=== PATIENT | male | born 1940 | race Caucasian/White ===

== ENCOUNTER 2022-01-27 21:06 | Inpatient (IN) | payer OTHER, MEDICAID ==
[~2022-01-27] VITALS: Ht 167.6 cm; Wt 60.4 kg
[2022-01-27] MEDS ORDERED: CEFTRIAXONE 1 G PREMIX 50 ML IV ONE (22:30)
[2022-01-27] MEDS ORDERED: AZITHROMYCIN 500MG/250ML 250 ML IV ONE (22:30)
[2022-01-27 23:16] LABS: HEMATOCRIT. 36.8 % (42.0-52.0); HEMOGLOBIN. 12.1 g/dL (14.0-18.0); MEAN CORPUSCULAR HEMOGLOBIN 31.4 pg (28.0-32.0); MEAN CORPUSCULAR VOLUME 95.6 fL (80.0-94.0); MEAN PLATELET VOLUME 7.6 fl (7.4-10.4); PLATELET 350 x1000/uL (130-400); RED BLOOD CELL COUNT 3.85 mill/uL (4.7-6.1); RED CELL DISTRIBUTION WIDTH 15.9 % (11.6-14.6)
[2022-01-27 23:22] LABS: CHLORIDE 102 mEq/L (98-107)
[2022-01-28] MEDS ORDERED: ASPIRIN 325MG TABLET PO ONE (00:15)
[2022-01-28] MEDS ORDERED: SODIUM CHLORIDE 0.9% 1000ML BAG (SEPSIS BOLUS) IV ONE (00:15)
[2022-01-28 07:11] LABS: ATYPICAL LYMPHOCYTES 1; PLATELET ESTIMATE NORMAL
[2022-01-28] MEDS: ASPIRIN 325MG TABLET PO NR ×2 (08:23→08:30)
[2022-01-28] MEDS ORDERED: DEXTROSE 50% WATER 50ML SYRINGE IV PRN (10:15)
[2022-01-28] MEDS ORDERED: ONDANSETRON HCL 4MG/2ML INJ IV PRN (10:15)
[2022-01-28] MEDS ORDERED: ACETAMINOPHEN 325MG TABLET PO PRN (10:15)
[2022-01-28] MEDS: SODIUM CHLORIDE 0.45% 1,000 ML IV SCH ×2 (10:50→21:53)
[2022-01-28 11:06] LABS: BG BASE EXCESS 0.1 mmol/L (-2.0-2.0); BG CARBOXYHEMOGLOBIN 0.7 % (0.5-1.5); BG DEOXYHEMOGLOBIN 3.9 % (0.0-5.0); BG FRACTION INSPIRED OXYGEN 21; BG HCO3 ACT 24.4 mmol/L (22.0-26.0); BG METHEMOGLOBIN 0.1 % (0.0-1.5); BG OXYGEN SATURATION 96.1 % (92.0-98.5); BG OXYHEMOGLOBIN 95.3 % (94.0-97.0); BG PCO2 38.2 mmHg (35.0-45.0); BG PH 7.423 (7.350-7.450); BG PO2 78.7 mmHg (75.0-100.0); BG SAMPLE SITE RIGHT RADIAL; BG TOTAL HEMOGLOBIN 12.5 g/dL (12.0-18.0); BG VENT MODE ROOM AIR
[2022-01-28] MEDS: BLOOD SUGAR DIAGNOSTIC STRIP TEST SCH ×3 (13:14→21:55)
[2022-01-28] MEDS: INSULIN LISPRO 100 UNITS/ML SUBCUT SCH ×3 (13:40→21:00)
[2022-01-28 14:10] VITALS: BP 107/70
[2022-01-28 16:00] VITALS: BP 89/60
[2022-01-28] MEDS ORDERED: ATOR10TA69 PO (18:41)
[2022-01-28] MEDS ORDERED: ASPI-1497 PO (18:41)
[2022-01-28] MEDS ORDERED: METF-874 MT (18:41)
[2022-01-28 20:00] VITALS: BP 121/69
[2022-01-28] MEDS ORDERED: CEFTRIAXONE 1 G PREMIX 50 ML IV SCH (21:00)
[2022-01-28] MEDS: CEFTRIAXONE 1,000 MG in DEXTROSE 5% WATER 50 ML IV SCH (21:53)
[2022-01-28] MEDS ORDERED: AZITHROMYCIN 500 MG in DEXT 5% WATER 250 ML IV SCH (23:00)
[2022-01-29] VITALS: BP 101/68
[2022-01-29 04:00] VITALS: BP 100/70
[2022-01-29 07:10] LABS: HEMATOCRIT. 36.4 % (42.0-52.0); HEMOGLOBIN. 11.9 g/dL (14.0-18.0); MEAN CORPUSCULAR HEMOGLOBIN 31.8 pg (28.0-32.0); MEAN CORPUSCULAR VOLUME 97.4 fL (80.0-94.0); MEAN PLATELET VOLUME 8.1 fl (7.4-10.4); PLATELET 293 x1000/uL (130-400); RED BLOOD CELL COUNT 3.74 mill/uL (4.7-6.1); RED CELL DISTRIBUTION WIDTH 15.6 % (11.6-14.6)
[2022-01-29 07:33] LABS: CHLORIDE 106 mEq/L (98-107)
[2022-01-29] MEDS: BLOOD SUGAR DIAGNOSTIC STRIP TEST SCH ×4 (07:59→21:45)
[2022-01-29 08:00] VITALS: BP 111/67
[2022-01-29] MEDS: INSULIN LISPRO 100 UNITS/ML SUBCUT SCH ×4 (08:45→21:39)
[2022-01-29] MEDS: ENOXAPARIN 40MG/0.4ML SYR SUBCUT SCH (10:24)
[2022-01-29 12:00] VITALS: BP 98/65
[2022-01-29] MEDS: SODIUM CHLORIDE 0.45% 1,000 ML IV SCH (13:26)
[2022-01-29 14:03] LABS: PLATELET ESTIMATE NORMAL
[2022-01-29 16:00] VITALS: BP 98/64
[2022-01-29] MEDS: AZITHROMYCIN 500 MG in DEXT 5% WATER 250 ML IV SCH (18:37)
[2022-01-29] MEDS: CEFTRIAXONE 1,000 MG in DEXTROSE 5% WATER 50 ML IV SCH (20:05)
[2022-01-30] VITALS (7 sets, daily range): BP systolic 95–120; BP diastolic 53–80
[2022-01-30] MEDS: SODIUM CHLORIDE 0.45% 1,000 ML IV SCH ×2 (02:30→22:41)
[2022-01-30] MEDS: BLOOD SUGAR DIAGNOSTIC STRIP TEST SCH ×4 (07:58→21:00)
[2022-01-30] MEDS: INSULIN LISPRO 100 UNITS/ML SUBCUT SCH ×4 (07:58→21:00)
[2022-01-30] MEDS: ENOXAPARIN 40MG/0.4ML SYR SUBCUT SCH (09:20)
[2022-01-30] MEDS: CEFTRIAXONE 1,000 MG in DEXTROSE 5% WATER 50 ML IV SCH (22:45)
[2022-01-30] MEDS: AZITHROMYCIN 500 MG in DEXT 5% WATER 250 ML IV SCH (22:45)
[2022-01-31] VITALS: BP 113/79
[2022-01-31 04:00] VITALS: BP 111/78
[2022-01-31] MEDS: SODIUM CHLORIDE 0.45% 1,000 ML IV SCH ×2 (04:56→12:20)
[2022-01-31 06:43] LABS: BASOPHILS % 0.2 % (0.0-2.0); EOSINOPHILS % 1.3 % (0.0-5.0); HEMATOCRIT. 34.7 % (42.0-52.0); HEMOGLOBIN. 11.8 g/dL (14.0-18.0); LYMPHOCYTES % 8.9 % (20.0-50.0); MEAN CORPUSCULAR HEMOGLOBIN 31.9 pg (28.0-32.0); MEAN CORPUSCULAR VOLUME 93.4 fL (80.0-94.0); MEAN PLATELET VOLUME 8.4 fl (7.4-10.4); NEUTROPHILS % 86.6 % (40.0-76.0); PLATELET 324 x1000/uL (130-400); RED BLOOD CELL COUNT 3.71 mill/uL (4.7-6.1); RED CELL DISTRIBUTION WIDTH 15.4 % (11.6-14.6)
[2022-01-31] MEDS: BLOOD SUGAR DIAGNOSTIC STRIP TEST SCH ×4 (07:37→21:51)
[2022-01-31 08:00] VITALS: BP 118/75
[2022-01-31] MEDS: INSULIN LISPRO 100 UNITS/ML SUBCUT SCH ×4 (08:11→21:50)
[2022-01-31] MEDS: ENOXAPARIN 40MG/0.4ML SYR SUBCUT SCH (08:12)
[2022-01-31 12:00] VITALS: BP 126/82
[2022-01-31 16:00] VITALS: BP 120/76
[2022-01-31] MEDS: FAMOTIDINE 20MG/2ML VIAL IV SCH (16:30)
[2022-01-31] MEDS: AZITHROMYCIN 500 MG in DEXT 5% WATER 250 ML IV SCH (17:36)
[2022-01-31 20:00] VITALS: BP 114/80
[2022-01-31] MEDS: CEFTRIAXONE 1,000 MG in DEXTROSE 5% WATER 50 ML IV SCH (21:59)
[2022-01-31 22:56] LABS: CHLORIDE 103 mEq/L (98-107)
[2022-02-01 00:43] VITALS: BP 102/68
[2022-02-01] MEDS: FAMOTIDINE 20MG/2ML VIAL IV SCH ×2 (03:22→16:22)
[2022-02-01 04:00] VITALS: BP 114/77
[2022-02-01] MEDS: BLOOD SUGAR DIAGNOSTIC STRIP TEST SCH ×4 (07:30→20:07)
[2022-02-01] MEDS: INSULIN LISPRO 100 UNITS/ML SUBCUT SCH ×4 (07:30→20:07)
[2022-02-01 07:32] LABS: BASOPHILS % 0.1 % (0.0-2.0); EOSINOPHILS % 1.1 % (0.0-5.0); HEMATOCRIT. 33.4 % (42.0-52.0); HEMOGLOBIN. 11.6 g/dL (14.0-18.0); LYMPHOCYTES % 7.7 % (20.0-50.0); MEAN CORPUSCULAR VOLUME 92.5 fL (80.0-94.0); MEAN PLATELET VOLUME 8.6 fl (7.4-10.4); MONOCYTES % 3.4 % (2.0-8.0); NEUTROPHILS % 87.7 % (40.0-76.0); PLATELET 319 x1000/uL (130-400); RED BLOOD CELL COUNT 3.61 mill/uL (4.7-6.1); RED CELL DISTRIBUTION WIDTH 15.3 % (11.6-14.6)
[2022-02-01 08:00] VITALS: BP 125/77
[2022-02-01] MEDS: ENOXAPARIN 40MG/0.4ML SYR SUBCUT SCH (08:55)
[2022-02-01 10:43] LABS: CHLORIDE 102 mEq/L (98-107)
[2022-02-01 12:00] VITALS: BP 103/69
[2022-02-01 16:00] VITALS: BP 106/73
[2022-02-01 20:00] VITALS: BP 122/83
[2022-02-01] MEDS: CEFTRIAXONE 1,000 MG in DEXTROSE 5% WATER 50 ML IV SCH (20:38)
[2022-02-02 00:15] VITALS: BP 128/77
[2022-02-02 04:10] VITALS: BP_SYST 122; BP_DIAS 80; BP_DIAS 83
[2022-02-02] MEDS: FAMOTIDINE 20MG/2ML VIAL IV SCH ×2 (04:48→17:45)
[2022-02-02] MEDS: BLOOD SUGAR DIAGNOSTIC STRIP TEST SCH ×4 (06:53→20:56)
[2022-02-02 08:00] VITALS: BP 137/89
[2022-02-02] MEDS: INSULIN LISPRO 100 UNITS/ML SUBCUT SCH ×4 (08:10→20:56)
[2022-02-02] MEDS: ENOXAPARIN 40MG/0.4ML SYR SUBCUT SCH (08:58)
[2022-02-02 12:00] VITALS: BP 127/79
[2022-02-02 16:00] VITALS: BP 121/69
[2022-02-02 19:51] VITALS: BP 120/84
[2022-02-02] MEDS: CEFTRIAXONE 1,000 MG in DEXTROSE 5% WATER 50 ML IV SCH (20:51)
[2022-02-03] VITALS: BP 111/64
[2022-02-03] MEDS: FAMOTIDINE 20MG/2ML VIAL IV SCH ×2 (03:53→17:28)
[2022-02-03 03:59] VITALS: BP 121/79
[2022-02-03] MEDS: BLOOD SUGAR DIAGNOSTIC STRIP TEST SCH ×4 (06:44→20:51)
[2022-02-03 08:00] VITALS: BP 127/83
[2022-02-03] MEDS: INSULIN LISPRO 100 UNITS/ML SUBCUT SCH ×4 (08:10→21:01)
[2022-02-03] MEDS: ENOXAPARIN 40MG/0.4ML SYR SUBCUT SCH (09:25)
[2022-02-03 12:00] VITALS: BP 97/52
[2022-02-03 16:00] VITALS: BP 94/47
[2022-02-03 20:00] VITALS: BP 101/59
[2022-02-04] VITALS: BP 91/58
[2022-02-04 04:00] VITALS: BP 98/51
[2022-02-04] MEDS: FAMOTIDINE 20MG/2ML VIAL IV SCH ×2 (04:58→17:35)
[2022-02-04] MEDS: INSULIN LISPRO 100 UNITS/ML SUBCUT SCH ×4 (06:10→20:26)
[2022-02-04] MEDS: BLOOD SUGAR DIAGNOSTIC STRIP TEST SCH ×4 (06:11→20:25)
[2022-02-04 08:00] VITALS: BP 121/69
[2022-02-04] MEDS: ENOXAPARIN 40MG/0.4ML SYR SUBCUT SCH (09:15)
[2022-02-04 12:00] VITALS: BP 118/76
[2022-02-04 16:00] VITALS: BP 118/70
[2022-02-04 20:00] VITALS: BP 110/69
[2022-02-05] VITALS (7 sets, daily range): BP systolic 94–156; BP diastolic 40–98
[2022-02-05] MEDS: FAMOTIDINE 20MG/2ML VIAL IV SCH ×2 (03:48→18:49)
[2022-02-05] MEDS: BLOOD SUGAR DIAGNOSTIC STRIP TEST SCH ×4 (06:49→21:00)
[2022-02-05] MEDS: INSULIN LISPRO 100 UNITS/ML SUBCUT SCH ×4 (08:09→21:00)
[2022-02-05] MEDS: ENOXAPARIN 40MG/0.4ML SYR SUBCUT SCH (10:25)
== END 2022-02-05 20:50 | DRG 871 ==
LOC: ER 21:06 → 5EST 01-28 02:12 → ENRESERV 01-28 11:30 → CANRESERV 01-28 11:30 → ENRESERV 01-28 11:43 → 7WST 01-30 14:10
PROVIDERS: ADMIT Internal Medicine; ATTEND Internal Medicine
DX: A41.9 Sepsis, unspecified organism (principal); E43 Unspecified severe protein-calorie malnutrition; J18.9 Pneumonia, unspecified organism; G92.8 Other toxic encephalopathy; J96.00 Acute respiratory failure, unspecified whether with hypoxia or hypercapnia; E87.20 Acidosis, unspecified; Z20.822 Contact with and (suspected) exposure to COVID-19; E11.65 Type 2 diabetes mellitus with hyperglycemia; I10 Essential (primary) hypertension; D53.9 Nutritional anemia, unspecified; Z68.21 Body mass index [BMI] 21.0-21.9, adult
CPT/HCPCS: 36415; 36600; 71045; 71250; 80048; 80053; 82375; 82805; 82962; 83605; 83880; 84145; 84484; 85025; 87426; 87804; 92610; 93005; 93306; 97110; 97162; 99285; A6261; C9803; J0456; J0696; J1650; J1815; J3490; J7030; J7060